=== PATIENT | male | born 2000 ===

== ENCOUNTER 2018-12-08 04:01 | Emergency (ER) | payer SELFPAY ==
[2018-12-08 05:05] LABS: Medtox Reader # READER 4
[2018-12-08 05:06] LABS: Amphetamine Not Detected (NotDetected); Barbiturates Screen Not Detected (NotDetected); Benzodiazepine Screen Not Detected (NotDetected); Cocaine Metabolite Screen Not Detected (NotDetected); Medtox Control Line Valid? VALID (VALID); Methadone Not Detected (NotDetected); Methamphetamine Not Detected (NotDetected); Opiate Screen Not Detected (NotDetected); Oxycodone Screen Not Detected (NotDetected); Phencyclidine (PCP) Not Detected (NotDetected); THC/Cannabinoid Screen Not Detected (NotDetected); Tricyclic Screen Not Detected (NotDetected)
--- NOTE | 2018-12-08 08:41 | RAD ---
PORTABLE CHEST 1 VIEW: Date: 12/08/18 Time: 0447 hours HISTORY: Palpitations, paresthesias, tachycardia. FINDINGS: The heart size is normal. The lungs are expanded without focal areas of consolidation, pneumothoraces , or pleural effusions. IMPRESSION: No radiographic evidence of acute cardiopulmonary process. POS: [facility]
== END 2018-12-08 05:28 | disposition home or self-care (01) ==
LOC: ERS 04:01
DX: F41.9 Anxiety disorder, unspecified (principal); J45.909 Unspecified asthma, uncomplicated; F32.9 Major depressive disorder, single episode, unspecified
CPT/HCPCS: 71045; 80306; 93005